=== PATIENT | female | born 1990 | race Asian ===

== ENCOUNTER 2019-10-24 15:28 | Outpatient (CLI) | payer OTHER | END 2019-10-24 23:12 | disposition home or self-care (01) | LOC: LABW 15:28 | DX: D64.9 Anemia, unspecified (principal); E11.9 Type 2 diabetes mellitus without complications; D57.3 Sickle-cell trait; E07.9 Disorder of thyroid, unspecified | CPT/HCPCS: 36415; 82607; 82728; 82746; 83540; 83550 ==

== ENCOUNTER 2023-04-08 10:27 | Outpatient (CLI) | payer OTHER ==
[2023-04-08 10:50] LABS: PLATELET COUNT 308 K/uL (152-353)
[2023-04-08 11:09] LABS: POTASSIUM 3.9 mmol/L (3.6-5.2)
== END 2023-04-08 18:55 | disposition home or self-care (01) ==
LOC: LABW 10:27
PROVIDERS: ATTEND Family Medicine
DX: E11.65 Type 2 diabetes mellitus with hyperglycemia (principal); R94.5 Abnormal results of liver function studies; E03.8 Other specified hypothyroidism; E78.00 Pure hypercholesterolemia, unspecified
CPT/HCPCS: 36415; 80053; 80061; 81002; 83036; 84439; 84443; 85027